=== PATIENT | female | born 1945 | race Caucasian/White ===

== ENCOUNTER 2017-01-19 10:12 | Outpatient (CLI) | payer OTHER ==
[2017-01-19 11:04] LABS: eGFR (African) > 60; eGFR (Non-African) > 60
== END 2017-01-19 10:13 ==
LOC: LAB 10:12
PROVIDERS: ATTEND Family Medicine
DX: I10 Essential (primary) hypertension (principal)
CPT/HCPCS: 36415; 80053; 80061; 84439; 84443; 84481

== ENCOUNTER 2017-01-27 09:53 | Outpatient (CLI) | payer OTHER | END 2017-01-27 09:54 | LOC: RAD 09:53 | PROVIDERS: ATTEND Family Medicine | DX: M80.00XA Age-related osteoporosis with current pathological fracture, unspecified site, initial encounter for fracture (principal) | CPT/HCPCS: 77080 ==

== ENCOUNTER 2017-01-29 09:55 | Day surgery (SDC) | payer OTHER ==
--- NOTE | 2017-01-30 09:58 | Operative Note ---
SURGEON: Nghia Perez MD ANESTHESIA: MAC anesthesia. ESTIMATED BLOOD LOSS: None. COMPLICATIONS: None. FINDINGS: Normal colonoscopy to cecum. PREOPERATIVE DIAGNOSIS: Screening colonoscopy. POSTOPERATIVE DIAGNOSIS: Normal colonoscopy. PROCEDURE PERFORMED: Colonoscopy. INDICATIONS FOR PROCEDURE: A screening colonoscopy. DESCRIPTION OF PROCEDURE: The patient was brought to the endoscopy suite and placed in the left lateral decubitus position. A rectal exam was performed, which was normal. The colonoscope was inserted and passed to the cecum. The ileocecal valve and appendiceal orifice were identified. The prep was good. The colonoscope was slowly retracted being careful to inspect all pearson. No polyps or other lesions were noted. The colonoscope was removed. The patient tolerated the procedure well. RECOMMENDATIONS: I recommend a follow up colonoscopy in 10 years. cc: Dr. Yony MALONE
== END 2017-01-29 09:56 ==
LOC: OPSURG 09:55
PROVIDERS: ATTEND Colon & Rectal Surgery
DX: Z12.11 Encounter for screening for malignant neoplasm of colon (principal)
CPT/HCPCS: G0121; J2704; S1016

== ENCOUNTER 2018-01-20 10:06 | Outpatient (CLI) | payer OTHER ==
[2018-01-20 11:03] LABS: eGFR (African) > 60; eGFR (Non-African) > 60
== END 2018-01-20 10:08 ==
LOC: LAB 10:06
PROVIDERS: ATTEND Family Medicine
DX: I10 Essential (primary) hypertension (principal); R53.82 Chronic fatigue, unspecified
CPT/HCPCS: 36415; 80053; 80061; 84443